=== PATIENT | male | born 1980 | race Caucasian/White ===

== ENCOUNTER 2021-08-05 03:00 | Emergency (ER) | payer OTHER, MEDICAID ==
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
[2021-08-05] MEDS ORDERED: Sodium Chloride 0.9% 1,000 ML IV SCH (03:30)
--- NOTE | 2021-08-05 07:40 | CR ---
Left forearm: AP and lateral views of the left forearm were obtained. Comparison: No prior forearm study is available. Slightly comminuted fracture is seen within the mid to distal diaphysis of the ulna. There is mild displacement by about a half shaft width. Radius appears to be intact. Diffuse soft tissue swelling is present. No additional fracture or other abnormality is appreciated. Impression: 1. Slightly displaced and mildly comminuted ulnar diaphyseal fracture. 2. Diffuse soft tissue swelling is present. Diagnostic code #3
--- NOTE | 2021-08-05 07:46 | CT ---
Head CT Technique: Multiple axial sections through the brain were obtained. Intravenous contrast was not utilized. Study was repeated because of motion artifact. Continued motion artifact is noted. Reconstructed coronal and sagittal images were obtained. Comparison: No prior intracranial imaging is available. Findings: Ventricles along with basal cisterns and sulci over the convexities are grossly unremarkable. No definite intracranial hemorrhage is seen. No midline shift or mass-effect is seen. Bone window settings were reviewed which show no gross bony abnormality. Visualized mastoid sinuses and visualized paranasal sinuses show nothing definitely acute. Impression: 1. No gross abnormality is identified on limited noncontrast study of the brain. Diagnostic code #1 I agree with preliminary report from [facility], finalized on 08/05/21, 6:56 AM CDT, code 1
== END 2021-08-05 07:49 | disposition home or self-care (01) ==
LOC: JD.ED 03:00
DX: S52.602A Unspecified fracture of lower end of left ulna, initial encounter for closed fracture (principal); F10.129 Alcohol abuse with intoxication, unspecified; S00.81XA Abrasion of other part of head, initial encounter; I10 Essential (primary) hypertension; Y90.0 Blood alcohol level of less than 20 mg/100 ml; Z87.891 Personal history of nicotine dependence; Z79.899 Other long term (current) drug therapy; V59.9XXA Occupant (driver) (passenger) of pick-up truck or van injured in unspecified traffic accident, initial encounter; Y92.410 Unspecified street and highway as the place of occurrence of the external cause
CPT/HCPCS: 29125; 36415; 70450; 73090; 80053; 80306; 80307; 85007; 85027; 99284; J7030